=== PATIENT | female | born 1990 | race Caucasian/White ===

== ENCOUNTER 2017-11-17 11:57 | Emergency (ER) | payer BC ==
[2017-11-17] MEDS ORDERED: Ketorolac 30 MG/ML SDV IM ONE (12:43)
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
[2017-11-17 13:58] VITALS: BP 109/73
== END 2017-11-17 13:32 | disposition home or self-care (01) ==
LOC: FB.ED 11:57
DX: G44.209 Tension-type headache, unspecified, not intractable (principal); F17.210 Nicotine dependence, cigarettes, uncomplicated; E11.9 Type 2 diabetes mellitus without complications; F90.9 Attention-deficit hyperactivity disorder, unspecified type; F41.9 Anxiety disorder, unspecified; Z91.09 Other allergy status, other than to drugs and biological substances; Z79.899 Other long term (current) drug therapy
CPT/HCPCS: 96372; 99283; J1885

== ENCOUNTER 2024-08-17 05:56 | Emergency (ER) | payer SELFPAY ==
[2024-08-17 06:07] VITALS: BP 119/76; PULSE 97
== END 2024-08-17 06:58 | disposition home or self-care (01) ==
LOC: FB.ED 05:56
DX: J10.1 Influenza due to other identified influenza virus with other respiratory manifestations (principal); Z91.048 Other nonmedicinal substance allergy status
CPT/HCPCS: 87428-QW; 99284